=== PATIENT | male | born 1975 | race Caucasian/White ===

== ENCOUNTER → 2017-07-09 | Outpatient (CLI) | payer BC ==
--- NOTE | 2017-07-09 16:41 | CT ---
EXAM DESCRIPTION: Abdomen w/o Contrast: Computed Tomography. CLINICAL HISTORY: UMBILICAL HERNIA COMPARISON: None. TECHNIQUE: Spiral-axial scans 5.0 mm intervals through the abdomen and upper pelvis without oral or IV contrast. Coronal and sagittal 2.0 mm reconstructions. Total Exam DLP: 543.83 mGy-cm. This exam was performed according to our departmental CT dose-optimization program which includes automated exposure control, adjustment of the mA and/or kV according to patient size and/or use of iterative reconstruction technique; to reduce radiation dose to as low as reasonably achievable (ALARA). FINDINGS: Lung bases and pleura: Focal pleural thickening in the posterior lateral right base or pleural loculation. No infiltrate. Liver, stomach, spleen, and adrenal glands: Right lobe of the liver 16.7 cm. Small low-density region in the lateral segment left lobe. Stomach visualized. Other solid organs negative. Pancreas, Gallbladder, and Ducts: Gallbladder visualized with possible stone in the neck. Duct not dilated. Pancreas unremarkable. Kidneys and Ureters: Negative. Mesentery: No free air or free fluid. No mesenteric/fatty stranding or fascial thickening. Aorta: Negative. Small Bowel: Normal caliber. Terminal Ileum/Cecum: Normal caliber. Appendix unremarkable. Normal density of the surrounding fatty tissue. Colon: Diffuse fecal matter but not distended. Minimal redundancy of the included sigmoid colon. Small diverticula but no complications. Spine: Grade 1 anterolisthesis L5-S1. Bilateral L5 pars spondylolysis. Bulging disc with bilateral foraminal narrowing. Concavity of the T12 T11 and T10 endplates. Normal bone density. Mild dextroscoliosis. Abdominal Wall/Back Soft Tissues: Minimal diastases at the umbilicus approximately 1 mL. Not containing bowel. No fatty edema. IMPRESSION: Fatty diastases at the umbilicus not containing bowel. Bilateral L5 pars spondylolysis with grade 1 anterolisthesis L5-S1 and significant narrowing of the bilateral foramina. Borderline enlargement of the liver with no ascites and no splenomegaly. Possible stone in the neck of the gallbladder. Consider follow-up right upper quadrant abdominal ultrasound. Electronically signed by: Dino Joseph MD 07/09/2017 4:39 PM [employer]
== END | disposition home or self-care (01) ==
LOC: CT 09:13
PROVIDERS: ATTEND Nurse Practitioner Family
DX: K43.9 Ventral hernia without obstruction or gangrene (principal)